=== PATIENT | female | born 1960 | race Caucasian/White ===

== ENCOUNTER 2017-05-03 07:07 | Emergency (ER) | payer BC ==
[2017-05-03] MEDS ORDERED: Nitroglycerin 0.4 MG Tab.SL SL ONE (07:18)
--- NOTE | 2017-05-03 07:42 | EDM.PDOC ---
[id number] CHEST PAIN Time Seen by Provider: 05/03/17 07:37 Source of Information: Reports: Patient History Limitations: Reports: No Limitations - History of Present Illness INITIAL COMMENTS - FREE TEXT/NARRATIVE: Pt arrived with chest pressure and tightness going up into the throat. She does not think this gets worse with exercise. She woke up in the nite with pressure and went to the BR. She nearly passed out and she did get very sweaty. She did take asa at 4 am. She has a known left bundle branch block. She is on vit D but no other meds. Onset: Gradual, Other (Pt has had some pressure on and off for 2 week s. She has not been sob. Last nite was by far the worse and she nearly passed out t that time. ) Duration: Day(s):, Intermittent, Other ( worse last nite. ) Location: Reports: Chest Associated Symptoms: Reports: Chest Pain, Diaphoresis, Other (pt did have the sensation she was going to pass out. 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 - Related Data Allergies Allergy/AdvReac Type Severity Reaction Status Date / Time gentamicin sulfate Allergy Redness Verified 03/15/14 13:29 [From Garamycin] Home Meds: Home Meds NK [No Known Home Meds] 05/03/17 [History] Past Medical History - Past Health History Medical/Surgical History: Denies Medical/Surgical History Cardiovascular History: Reports: Other (See Below) Other Cardiovascular History: known lbbb - Past Surgical History GI Surgical History: Reports: Colonoscopy Musculoskeletal Surgical History: Reports: Shoulder Surgery Social & Family History - Tobacco Use Smoking Status *Q: Never Smoker - Caffeine Use Caffeine Use: Reports: Soda ED ROS GENERAL - Review of Systems Review Of Systems: See Below Constitutional: Reports: No Symptoms HEENT: Reports: No Symptoms Respiratory: Reports: No Symptoms Cardiovascular: Reports: Other ( chest pressure and tightness in her throat. ) Endocrine: Reports: No Symptoms GI/Abdominal: Reports: No Symptoms : Reports: No Symptoms Musculoskeletal: Reports: No Symptoms Skin: Reports: No Symptoms Neurological: Reports: No Symptoms ED EXAM, GENERAL - Physical Exam Exam: See Below Free Text/Narrative:: pt arrived with chest pressure and tightness going up into the neck. This has been a off and on thing for the past 2 weeks. Last nite she had a near syncopal episode. She was also nauseated at that time. She did not vomit. She did become very sweaty. Exam Limited By: No Limitations General Appearance: Alert, Mild Distress Ears: Normal TMs Nose: Normal Inspection Throat/Mouth: Normal Inspection Head: Atraumatic Neck: Normal Inspection Respiratory/Chest: No Respiratory Distress Cardiovascular: Regular Rate, Rhythm, Systolic Murmur, Other ( grade 1 /6) GI/Abdominal: Soft, Non-Tender (Female) Exam: Deferred Rectal (Female) Exam: Deferred Back Exam: Normal Inspection Extremities: Normal Inspection Course - Vital Signs Last Recorded V/S: Last Vital Signs Temp 37.1 C 05/03/17 07:40 Pulse 101 H 05/03/17 08:21 Resp 10 L 05/03/17 08:21 BP 102/64 05/03/17 08:35 Pulse Ox 92 L 05/03/17 08:21 - Orders/Labs/Meds Orders: Active Orders 24 hr Category Date Time Status EKG Documentation Completion [RC] ASDIRECTED Care 05/03/17 07:18 Active Chest 1V Frontal [CR] Stat Exams 05/03/17 07:17 Taken EKG 12 Lead [EK] Routine Ther 05/03/17 07:18 Ordered Labs: Laboratory Tests 05/03/17 05/03/17 05/03/17 Range/Units 07:22 07:22 07:22 WBC 8.0 (4.5-11.0) K/uL RBC 4.38 (3.30-5.50) M/uL Hgb 12.9 (12.0-15.0) g/dL Hct 38.7 (36.0-48.0) % MCV 88 (80-98) fL MCH 30 (27-31) pg MCHC 33 (32-36) % Plt Count 420 H (150-400) K/uL Neut % (Auto) 74 H (36-66) % Lymph % (Auto) 16 L (24-44) % [place] % (Auto) 10 H (2-6) % Eos % (Auto) 0 L (2-4) % Baso % (Auto) 1 (0-1) % APTT (27.0-36.0) sec Sodium 140 (140-148) mmol/L Potassium 3.5 L (3.6-5.2) mmol/L Chloride 104 (100-108) mmol/L Carbon Dioxide 26 (21-32) mmol/L Anion Gap 13.5 (5.0-14.0) mmol/L BUN 18 (7-18) mg/dL Creatinine 0.8 (0.6-1.0) mg/dL Est Cr Clr Drug Dosing 74.54 mL/min Estimated GFR (MDRD) > 60 (>60) Glucose 133 H (74-106) mg/dL Calcium 8.5 (8.5-10.1) mg/dL Total Bilirubin 0.3 (0.2-1.0) mg/dL AST 28 (15-37) U/L ALT 25 (12-78) U/L Alkaline Phosphatase 98 (46-116) U/L Creatine Kinase 236 H (26-192) U/L CK-MB (CK-2) (0-3.6) mg/mL Troponin I 0.661 H* (0.000-0.056) ng/mL Total Protein 7.6 (6.4-8.2) g/dL Albumin 4.0 (3.4-5.0) g/dL Globulin 3.6 H (2.3-3.5) g/dL Albumin/Globulin Ratio 1.1 L (1.2-2.2) TSH, Ultra Sensitive (0.358-3.740) uIU/mL Urine Color Urine Appearance Urine pH (4.5-8.0) Ur Specific [place] (1.008-1.030) Urine Protein (NEGATIVE) mg/dL Urine Glucose (UA) (NEGATIVE) mg/dL Urine Ketones (NEGATIVE) mg/dL Urine Occult Blood (NEGATIVE) Urine Nitrite (NEGATIVE) Urine Bilirubin (NEGATIVE) Urine Urobilinogen (NORMAL) mg/dL Ur Leukocyte Esterase (NEGATIVE) Urine RBC (0-5) Urine WBC (0-5) Ur Epithelial Cells Amorphous Sediment Urine Bacteria Urine Mucus 05/03/17 05/03/17 05/03/17 Range/Units 08:03 08:08 08:10 WBC (4.5-11.0) K/uL RBC (3.30-5.50) M/uL Hgb (12.0-15.0) g/dL Hct (36.0-48.0) % MCV (80-98) fL MCH (27-31) pg MCHC (32-36) % Plt Count (150-400) K/uL Neut % (Auto) (36-66) % Lymph % (Auto) (24-44) % [place] % (Auto) (2-6) % Eos % (Auto) (2-4) % Baso % (Auto) (0-1) % APTT 25.6 L (27.0-36.0) sec Sodium (140-148) mmol/L Potassium (3.6-5.2) mmol/L Chloride (100-108) mmol/L Carbon Dioxide (21-32) mmol/L Anion Gap (5.0-14.0) mmol/L BUN (7-18) mg/dL Creatinine (0.6-1.0) mg/dL Est Cr Clr Drug Dosing mL/min Estimated GFR (MDRD) (>60) Glucose (74-106) mg/dL Calcium (8.5-10.1) mg/dL Total Bilirubin (0.2-1.0) mg/dL AST (15-37) U/L ALT (12-78) U/L Alkaline Phosphatase (46-116) U/L Creatine Kinase (26-192) U/L CK-MB (CK-2) 7.0 H* (0-3.6) mg/mL Troponin I (0.000-0.056) ng/mL Total Protein (6.4-8.2) g/dL Albumin (3.4-5.0) g/dL Globulin (2.3-3.5) g/dL Albumin/Globulin Ratio (1.2-2.2) TSH, Ultra Sensitive 3.292 (0.358-3.740) uIU/mL Urine Color Urine Appearance Urine pH (4.5-8.0) Ur Specific [place] (1.008-1.030) Urine Protein (NEGATIVE) mg/dL Urine Glucose (UA) (NEGATIVE) mg/dL Urine Ketones (NEGATIVE) mg/dL Urine Occult Blood (NEGATIVE) Urine Nitrite (NEGATIVE) Urine Bilirubin (NEGATIVE) Urine Urobilinogen (NORMAL) mg/dL Ur Leukocyte Esterase (NEGATIVE) Urine RBC (0-5) Urine WBC (0-5) Ur Epithelial Cells Amorphous Sediment Urine Bacteria Urine Mucus 05/03/17 Range/Units 08:44 WBC (4.5-11.0) K/uL RBC (3.30-5.50) M/uL Hgb (12.0-15.0) g/dL Hct (36.0-48.0) % MCV (80-98) fL MCH (27-31) pg MCHC (32-36) % Plt Count (150-400) K/uL Neut % (Auto) (36-66) % Lymph % (Auto) (24-44) % [place] % (Auto) (2-6) % Eos % (Auto) (2-4) % Baso % (Auto) (0-1) % APTT (27.0-36.0) sec Sodium (140-148) mmol/L Potassium (3.6-5.2) mmol/L Chloride (100-108) mmol/L Carbon Dioxide (21-32) mmol/L Anion Gap (5.0-14.0) mmol/L BUN (7-18) mg/dL Creatinine (0.6-1.0) mg/dL Est Cr Clr Drug Dosing mL/min Estimated GFR (MDRD) (>60) Glucose (74-106) mg/dL Calcium (8.5-10.1) mg/dL Total Bilirubin (0.2-1.0) mg/dL AST (15-37) U/L ALT (12-78) U/L Alkaline Phosphatase (46-116) U/L Creatine Kinase (26-192) U/L CK-MB (CK-2) (0-3.6) mg/mL Troponin I (0.000-0.056) ng/mL Total Protein (6.4-8.2) g/dL Albumin (3.4-5.0) g/dL Globulin (2.3-3.5) g/dL Albumin/Globulin Ratio (1.2-2.2) TSH, Ultra Sensitive (0.358-3.740) uIU/mL Urine Color Yellow Urine Appearance Cloudy Urine pH 7.0 (4.5-8.0) Ur Specific [place] 1.010 (1.008-1.030) Urine Protein Negative (NEGATIVE) mg/dL Urine Glucose (UA) Normal (NEGATIVE) mg/dL Urine Ketones Negative (NEGATIVE) mg/dL Urine Occult Blood Negative (NEGATIVE) Urine Nitrite Negative (NEGATIVE) Urine Bilirubin Small (NEGATIVE) Urine Urobilinogen Normal (NORMAL) mg/dL Ur Leukocyte Esterase Small (NEGATIVE) Urine RBC 0-5 (0-5) Urine WBC 0-5 (0-5) Ur Epithelial Cells Few Amorphous Sediment Few Urine Bacteria Rare Urine Mucus Numerous Meds: Medications Discontinued Medications Generic Name Dose Route Start Last Admin Trade Name Freq PRN Reason Stop Dose Admin Clopidogrel Bisulfate 600 mg 05/03/17 08:21 05/03/17 08:31 Plavix PO 05/03/17 08:22 600 mg ONETIME ONE Administration Heparin Sodium (Porcine) 4,000 units 05/03/17 08:21 05/03/17 08:32 Heparin Sodium IVPUSH 05/03/17 08:22 4,000 units ONETIME ONE Administration Sodium Chloride 1,000 mls @ 150 mls/hr 05/03/17 08:15 05/03/17 08:20 Normal Saline IV 150 mls/hr ASDIRECTED ENOC Administration Nitroglycerin/Dextrose 25 mg in 250 mls @ 6 mls/hr 05/03/17 08:30 05/03/17 08 :35 Nitroglycerin 25 Mg/D5w 250 Ml IV 10 mcg/min TITRATE ENOC 6 mls/hr Protocol Administration 10 MCG/MIN Nitroglycerin 0.4 mg 05/03/17 07:18 05/03/17 07:18 Nitrostat SL 05/03/17 07:19 0.4 mg ONETIME ONE Administration Nitroglycerin 0.4 mg 05/03/17 08:08 05/03/17 08:19 Nitrostat SL 05/03/17 08:19 0.4 mg Q5M PRN Administration Chest Pain - Re-Assessments/Exams Free Text/Narrative Re-Assessment/Exam: 05/03/17 08:15 pt was given 1 nitro and she did not get relief of the pressure. Will repeat further nitros once the iv fluids are started. Her trop was found to be elvated at .661. Her ck was also mildly elevated. 05/04/17 07:25 fluids were started at 150 and she was given a second nitro. She had almost complete relief of the chest pressure with that nitro. A tridil drip was started at 5 mics as she was very sensitive to the nitro in terms of her bp. She was more comfortable at the time of departure. She was given plavix 600mg and a bolus of hepparin of 4000 units. Departure - Departure Time of Disposition: 08:36 Disposition: DC/Tfer to Acute Hospital 02 Reason for Transfer *Q: Primary PCI Indicated Condition: fair Clinical Impression: Elevated troponin, Acute MD, Left bundle branch block Referrals: PCP,None [Primary Care Provider] - Forms: ED Department Discharge Care Plan Goals: transfer to [facility]. - My Orders Last 24 Hours: My Active Orders 05/03/17 07:17 Chest 1V Frontal [CR] Stat 05/03/17 07:18 EKG Documentation Completion [RC] ASDIRECTED EKG 12 Lead [EK] Routine - Assessment/Plan Last 24 Hours: My Active Orders 05/03/17 07:17 Chest 1V Frontal [CR] Stat 05/03/17 07:18 EKG Documentation Completion [RC] ASDIRECTED EKG 12 Lead [EK] Routine
[2017-05-03] MEDS ORDERED: Nitroglycerin 0.4 MG Tab.SL SL PRN (08:08)
[2017-05-03] MEDS ORDERED: Sodium Chloride 0.9% 1,000 ML IV SCH (08:15)
[2017-05-03] MEDS ORDERED: Clopidogrel 75 MG Tab PO ONE (08:21)
[2017-05-03] MEDS ORDERED: Heparin Sodium 5,000 Units/ML Vial IVPUSH ONE (08:21)
[2017-05-03] MEDS ORDERED: Nitroglycerin/D5W 25 MG/250 ML BOTTLE IV SCH (08:30)
[2017-05-03 08:36] VITALS: BP 102/64
--- NOTE | 2017-05-04 09:37 | CR ---
Chest 1V Frontal FINDINGS: The heart and vascular structures are normal in appearance. No infiltrates or effusions ar e demonstrated. The skeletal structures are unremarkable. IMPRESSION: Negative exam.
== END 2017-05-03 09:03 ==
LOC: JP.ED 07:07
DX: I21.3 ST elevation (STEMI) myocardial infarction of unspecified site (principal); I44.7 Left bundle-branch block, unspecified; R74.8 Abnormal levels of other serum enzymes; Z88.1 Allergy status to other antibiotic agents; Z98.890 Other specified postprocedural states
CPT/HCPCS: 36415; 71010; 80053; 81001; 82550; 82553; 84443; 84484; 85025; 85730; 93005; 99285; A9270; J1644; J7040

== ENCOUNTER 2017-09-01 16:34 | Emergency (ER) | payer BC, OTHER ==
[2017-09-01 16:43] VITALS: BP 138/82
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
== END 2017-09-01 18:57 | disposition home or self-care (01) ==
LOC: JP.ED 16:34
DX: M25.511 Pain in right shoulder (principal); I25.2 Old myocardial infarction; Z88.1 Allergy status to other antibiotic agents; Z79.82 Long term (current) use of aspirin; Z87.891 Personal history of nicotine dependence; Z98.890 Other specified postprocedural states
CPT/HCPCS: 99283

== ENCOUNTER → 2017-10-19 | Day surgery (SDC) | payer BC ==
[~2017-10-19] MED LIST: Dextrose 5%-Lactated Ringers 1,000 ML IV SCH; Glycopyrrolate 0.2 MG/ML 2 ML SDV IVPUSH ONE; Midazolam 1 MG/ML 2 ML SDV ONE; Pantoprazole 40 MG Vial IVPUSH ONE; Propofol 200 MG/20 ML SDV ONE; fentaNYL 100 MCG/2 ML SDV ONE
[2017-10-19 10:54] VITALS: BP 120/81
--- NOTE | 2017-10-26 09:09 | OR ---
DATE OF PROCEDURE: 10/19/2017 PREOPERATIVE DIAGNOSIS: Substernal pain. POSTOPERATIVE DIAGNOSIS: Substernal pain associated with: 1. Small hiatal hernia with mild gastroesophageal reflux disease. 2. Multiple gastric polyps. 3. Mild antral gastritis. OPERATIVE PROCEDURE: Esophagogastroduodenoscopy with: 1. Biopsies of esophagogastric junction for histologic evaluation. 2. Biopsies of antrum for CLOtest. 3. Gastric polypectomy by snare technique. ANESTHESIA: IV sedation. INDICATIONS FOR PROCEDURE: The patient was noted to have a non-ST elevated myocardial infarction in April of this year. She continues to have some episodes of chest pain and recent cardiac catheter; however, showed no obstructive lesions, although the distal LAD was noted to be small and somewhat tortuous. The patient was referred for upper endoscopy at this time to rule out concurrent gastroesophageal reflux disease to account for the patient's symptoms. Potential risks of the procedure, including bleeding and perforation were discussed, and the patient wishes to proceed. DETAILS OF PROCEDURE: The patient was taken to the operating room and placed in a left lateral decubitus position. IV sedation was administered, after which the upper GI endoscope was passed orally through the length of the esophagus into the stomach with retroflexion view of the fundus, and thereafter, through the pyloric channel, and into the proximal duodenum. Findings included a normal hypopharynx, larynx, upper esophageal sphincter, and esophageal body. At the EG junction, a small roughly 1 cm hiatal hernia was present. This did have some active gastroesophageal reflux disease present with mucosa being edematous and somewhat friable. No erosions or ulcers were seen. There was no plaquing, stricturing, or other signs of neoplasia. Within the stomach, the patient had multiple gastric polyps within the fundus and body of the stomach. These appeared to be most likely benign fundic type polyps. There was also some mild redness in the antrum. The pyloric channel and duodenum to the junction of the third and fourth portions were unremarkable. At this point, biopsies were obtained from the antrum and sent for CLOtest for H. pylori. Multiple biopsies were then obtained from the esophagogastric junction and sent for histologic evaluation. Finally, the largest of the polyps and this being in the gastric body, was encircled with a snare and excised at its base using the cautery snare technique. This was placed into a specimen basket and retrieved and sent for histologic evaluation. At the conclusion of the procedure, there was a good hemostasis at all of the biopsy and polypectomy sites. The patient was taken to the recovery room in satisfactory condition. Plan at this point will be to give the patient Protonix 40 mg IV in the recovery room and then begin Protonix 40 mg daily. We will also look at the issue of the gallbladder potentially contributing to the patient's symptoms. We will obtain a CCK stimulated HIDA scan. After the present reports are back, we will put things together in terms of deciding a treatment plan. Herb Vaca MD /[id number]
== END ==
LOC: JP.SDS 08:16
PROVIDERS: ATTEND Surgery
DX: K31.7 Polyp of stomach and duodenum (principal); K29.50 Unspecified chronic gastritis without bleeding; K21.0 Gastro-esophageal reflux disease with esophagitis; K44.9 Diaphragmatic hernia without obstruction or gangrene; I25.10 Atherosclerotic heart disease of native coronary artery without angina pectoris; E11.9 Type 2 diabetes mellitus without complications; I25.2 Old myocardial infarction; Z88.1 Allergy status to other antibiotic agents
CPT/HCPCS: 43239; 43251; 87081; C9113; J2250; J2704; J3010; J7042; 88305; J3490

== ENCOUNTER 2020-07-03 06:30 | Day surgery (SDC) | payer BC ==
[2020-07-03] MEDS ORDERED: Dextrose 5%-Lactated Ringers 1,000 ML IV SCH (07:00)
[2020-07-03] MEDS ORDERED: Propofol 200 MG/20 ML SDV ONE (07:01)
[2020-07-03] MEDS ORDERED: Midazolam 1 MG/ML 2 ML SDV ONE (07:01)
[2020-07-03] MEDS ORDERED: fentaNYL 100 MCG/2 ML SDV ONE (07:01)
[2020-07-03 09:41] VITALS: BP 129/88; PULSE 62
--- NOTE | 2020-07-09 14:06 | OR ---
DATE OF PROCEDURE: 07/03/2020 SURGEON: Herb Vaca MD PREOPERATIVE DIAGNOSIS: Family history of colon carcinoma. POSTOPERATIVE DIAGNOSIS: Normal colonoscopic examination. OPERATIVE PROCEDURE: Flexible colonoscopy. ANESTHESIA: IV sedation. INDICATIONS FOR PROCEDURE: A 59-year-old presenting for a screening colonoscopy. She does have a family history concerning for her father having a colon carcinoma. Plan is to proceed with colonoscopy with biopsies and polypectomy as indicated. Potential risks including bleeding and perforation were discussed, and the patient wishes to proceed. DETAILS OF PROCEDURE: The patient was taken to the operating room and placed in a left lateral decubitus position. IV sedation was administered after which the digital rectal exam was performed and was unremarkable. Colonoscope was then passed into the rectum with retroflexion revealing uncomplicated hemorrhoidal columns. Scope was then eventually passed to the level of the cecum. The prep was quite good with only a tiny bit of liquid stool present to that level. No abnormalities were noted. Specifically, there were no diverticula. No areas of colitis. No polyps or other signs of neoplasia. Scope was then withdrawn, and the procedure concluded. The patient was taken to the recovery room in satisfactory condition. Given the family history here, the next colonoscopy should be scheduled in 5 years. Herb Vaca MD /[id number]
== END 2020-07-03 09:48 | disposition home or self-care (01) ==
LOC: JP.SDS 06:30
PROVIDERS: ATTEND Surgery
DX: Z12.11 Encounter for screening for malignant neoplasm of colon (principal); K64.9 Unspecified hemorrhoids; Z88.1 Allergy status to other antibiotic agents; Z80.0 Family history of malignant neoplasm of digestive organs
CPT/HCPCS: 45378; J2250; J2704; J3010; J7121

== ENCOUNTER 2022-10-08 10:14 | Emergency (ER) | payer BC ==
[2022-10-08] MEDS ORDERED: Sodium Chloride 0.9% 1,000 ML IV SCH (11:00)
[2022-10-08 11:12] LABS: ESTIMATED GFR 82 mL/min (>60)
[2022-10-08 11:57] LABS: CORONAVIRUS COVID-19 NAA NEGATIVE (NEGATIVE)
[2022-10-08] MEDS ORDERED: Sodium Chloride 0.9% 10 ML Syringe FLUSH ONE (12:49)
[2022-10-08 12:50] VITALS: BP 143/77; PULSE 67
[2022-10-08] MEDS ORDERED: Iopamidol 612 MG/ML 100 ML Bottle IV SCH (13:00)
[2022-10-08] MEDS ORDERED: Sodium Chloride 0.9% 50 ML IV SCH (13:00)
== END 2022-10-08 15:18 | disposition home or self-care (01) ==
LOC: JP.ED 10:14
DX: R07.89 Other chest pain (principal); R06.02 Shortness of breath; I44.7 Left bundle-branch block, unspecified; I25.2 Old myocardial infarction; Z88.1 Allergy status to other antibiotic agents; Z79.82 Long term (current) use of aspirin; Z79.899 Other long term (current) drug therapy; Z20.822 Contact with and (suspected) exposure to COVID-19
CPT/HCPCS: 0241U; 36415; 71046; 71260; 80053; 84443; 84484; 85025; 85379; 93005; 96360; 99285; J3490; J7030; Q9967